=== PATIENT | female | born 1940 | race Caucasian/White ===

== ENCOUNTER 2017-06-05 00:53 | Observation (INO) | payer MEDICARE, BC ==
[2017-06-05 01:32] LABS: HEMATOCRIT 47 % (35-47); MEAN CORPUSCULAR HGB CONC 37.5 gm/dl (32.0-36.0); MEAN CORPUSCULAR VOLUME 94 fL (81-99)
[2017-06-05 01:38] LABS: ALBUMIN 3.1 gm/dl (3.4-5.0); ALT 88 IU/L (14-63); CALCIUM 9.5 mg/dl (8.5-10.1); GLOM FILT RATE 46 mL/min (>60); POTASSIUM 3.7 mMol/L (3.5-5.1); SODIUM 135 mMol/L (136-145)
[2017-06-05 02:03] LABS: BASOPHILS % (MANUAL) 0 % (0-3); EOSINOPHILS % (MANUAL) 0 % (0-9); LYMPHOCYTES % (MANUAL) 36 % (10-50); NORMAL RBCS PRESENT
[2017-06-05] MEDS ORDERED: SODIUM CHLORIDE 0.9% 1000ML 1,000 ML IV ONE (02:49)
[2017-06-05] MEDS ORDERED: ACETAMINOPHEN 325 MG PO PRN (03:02)
[2017-06-05] MEDS ORDERED: MECLIZINE HYDROCHLORIDE 12.5 MG TAB PO PRN (03:02)
[2017-06-05] MEDS ORDERED: PROCHLORPERAZINE MALEATE 5 MG TAB PO PRN (03:02)
[2017-06-05] MEDS ORDERED: WARFARIN SODIUM 2 MG TAB PO SCH ×2 (03:15→18:00)
[2017-06-05] MEDS ORDERED: APAP/HYDROCODONE 325/5 TAB PO PRN (06:36)
[2017-06-05 07:07] LABS: APPEARANCE,URINE Clear; BILIRUBIN,URINE NEGATIVE (NEGATIVE); COLOR,URINE Yellow; GLUCOSE, URINE (UA) NEGATIVE (NEGATIVE); KETONES,URINE TRACE (NEGATIVE); LEUKOCYTE ESTERASE ,URINE NEGATIVE (NEGATIVE); NITRATE,URINE NEGATIVE (NEGATIVE); OCCULT BLOOD,URINE NEGATIVE (NEG-TRACE); PH,URINE 6.5; UROBILINOGEN,URINE 0.2 (0.2-1.0 EU)
[2017-06-05 07:37] LABS: RBC,URINE 0-2 (0-3AV/HPF); WBC,URINE 0-2 (0-5AV/HPF)
[2017-06-05 08:06] VITALS: BP 156/105; PULSE 110; RESP 20; TEMP 97.2; O2SAT 110
[2017-06-05] MEDS ORDERED: HYDROMORPHONE 1 MG/ML SYRINGE IV PRN (08:12)
[2017-06-05] MEDS ORDERED: HYDROMORPHONE 1 MG/ML SYRINGE IV SCH (08:15)
[2017-06-05] MEDS ORDERED: MULTIVITAMIN2 1 EA TAB PO SCH (09:00)
[2017-06-05] MEDS ORDERED: PREDNISONE 20 MG TAB PO SCH (09:00)
[2017-06-05] MEDS ORDERED: ATENOLOL 25 MG TAB PO SCH (09:00)
[2017-06-05] MEDS ORDERED: HYDROCHLOROTHIAZIDE/TRIAMTER 25/37.5 CAPSULE PO SCH (09:00)
[2017-06-05] MEDS ORDERED: MIRTAZAPINE 15 MG TAB PO SCH (21:00)
[2017-06-05] MEDS ORDERED: PRAVASTATIN SODIUM 20 MG TAB PO SCH (21:00)
[2017-06-06] MEDS ORDERED: SULFAMETHOXAZOLE/TRIMETHOPRI 800/160 MG PO SCH (09:00)
[2017-06-06] MEDS ORDERED: WARFARIN SODIUM 4 MG TAB PO SCH (18:00)
== END 2017-06-05 13:50 | disposition short-term general hospital (02) | DRG 446 ==
LOC: ED 00:53 → ACUTE CARE 02:52
PROVIDERS: ADMIT Family Medicine; ATTEND Family Medicine
DX: K81.9 Cholecystitis, unspecified (principal); J84.10 Pulmonary fibrosis, unspecified; I10 Essential (primary) hypertension; Z79.01 Long term (current) use of anticoagulants
CPT/HCPCS: 36415; 71010; 74176; 80053; 81001; 84484; 85007; 85027; 85610; 93005; 99218; 99285; Q0164; J1170